=== PATIENT | female | born 1965 | race Caucasian/White ===

== ENCOUNTER → 2021-08-04 | Outpatient (CLI) | payer MEDICAID | LOC: COL.RAD 08:41 | DX: C50.411 Malignant neoplasm of upper-outer quadrant of right female breast (principal); R91.1 Solitary pulmonary nodule; Z90.49 Acquired absence of other specified parts of digestive tract; Z90.710 Acquired absence of both cervix and uterus | CPT/HCPCS: A9503; Q9967 ==

== ENCOUNTER → 2021-10-22 | Outpatient (CLI) | payer MEDICAID | LOC: COL.RAD 09:29 | DX: C50.411 Malignant neoplasm of upper-outer quadrant of right female breast (principal); C79.51 Secondary malignant neoplasm of bone; J94.8 Other specified pleural conditions; K76.9 Liver disease, unspecified; R91.8 Other nonspecific abnormal finding of lung field | CPT/HCPCS: Q9967 ==

== ENCOUNTER → 2022-08-23 | Outpatient (CLI) | payer MEDICAID | LOC: COL.CARD 11:00 | DX: C50.411 Malignant neoplasm of upper-outer quadrant of right female breast (principal) ==

== ENCOUNTER → 2023-02-01 | Outpatient (CLI) | payer SELFPAY ==
[~2023-02-01] VITALS: Ht 162.6 cm; Wt 53.4 kg
[2023-02-01] VITALS (8 sets, daily range): BP systolic 123–146; BP diastolic 73–83; PULSE 76–93; TEMP 97.9
[~2023-02-01] MED LIST: ELIQUIS 5MG PO; GLUCOPHAGE1000 MG PO; KISQALI400 MG PO; MS CONTIN 115 MG/TAB PO; NORCO 325 MG-101 TAB PO; PROTONIX 40MG T40 MG PO; ZOFRAN8 MG PO
--- NOTE | 2023-02-01 06:55 | NUR ---
pt has not shown up
== END ==
LOC: COL.RAD 06:30
DX: C50.411 Malignant neoplasm of upper-outer quadrant of right female breast (principal)
CPT/HCPCS: 27939; 32106

== ENCOUNTER 2023-11-07 22:08 | Inpatient (IN) | payer MEDICARE, MEDICAID ==
[~2023-11-07] VITALS: Ht 162.6 cm; Wt 48.0 kg
[2023-11-07] MEDS ORDERED: NS 1,000 ML IV ONE (22:45)
[2023-11-07 23:59] LABS: HEMATOCRIT 41.4 % (37.0-47.0); HEMOGLOBIN 13.5 g/dl (12.5-16.0); MEAN CELL VOLUME 85 fl (80.0-100.0); MEAN CORPUSCULAR HEMOGLOBIN 28 pg (27-31); MEAN CORPUSCULAR HGB CONC 33 g/dl (33.0-37.0); MEAN PLATELET VOLUME 11.9 fl (7.4-10.4); PLATELET COUNT 386 K/mm3 (130-400); RED BLOOD COUNT 4.87 M/mm3 (4.10-5.30); REDCELL DISTRIBUTION WIDTH-CV 21.5 % (11.5-14.5)
[2023-11-08] VITALS (10 sets, daily range): BP systolic 91–112; BP diastolic 51–71; PULSE 89–96; TEMP 98–99.2
[2023-11-08 00:12] LABS: ALBUMIN 3.4 g/dL (3.5-5.0); BILIRUBIN,TOTAL 0.7 mg/dL (0.2-1.2); CALCIUM 9.8 mg/dL (8.4-10.2); CREATININE, serum 1.03 mg/dL (0.57-1.11); POTASSIUM 3.5 mEq/L (3.5-4.5); TOTAL PROTEIN 7.5 g/dl (6.2-8.1)
[2023-11-08 00:17] LABS: ANISOCYTOSIS 3+; BAND 24 % (0-10); EOSINOPHIL 3 % (0-4); LYMPHOCYTE 20 % (20.0-51.0); METAMYELOCYTE 3 % (0-0); NEUTROPHILS 42 % (42.0-75.2); PLATELET ESTIMATE NORMAL (NORMAL)
[2023-11-08 00:39] LABS: TROPONIN-I 0.737 ng/mL (0.00-0.033)
[2023-11-08] MEDS ORDERED: NS 500 ML IV ONE (01:45)
[2023-11-08 02:25] LABS: PH 5.5 (5.0-8.5); URINE APPEARANCE CLEAR (CLEAR/HAZY); URINE BLOOD NEGATIVE (NEGATIVE); URINE COLOR YELLOW (YELLOW); URINE GLUCOSE NEGATIVE (NEGATIVE); URINE KETONE 1+ (NEGATIVE); URINE NITRATE NEGATIVE (NEGATIVE); URINE PROTEIN(semi-quant) NEGATIVE (NEGATIVE); URINE UROBILINOGEN 0.2 E.U/dL (0.2-1.0)
[2023-11-08 02:33] LABS: COLLECTION METHOD CLEAN CATCH
[2023-11-08] MEDS ORDERED: Ondansetron 4 MG/2 ML VIAL IV PRN (03:15)
[2023-11-08] MEDS ORDERED: Mag/Al Hydrox/Simeth Susp 30 ML CUP PO PRN (03:15)
[2023-11-08] MEDS ORDERED: NS 1,000 ML IV SCH (03:15)
[2023-11-08] MEDS ORDERED: Acetaminophen 325 MG TAB PO PRN (03:15)
--- NOTE | 2023-11-08 03:45 | NUR ---
arrived on unit per stretcher, she was able to move herself from the stretcher to her bed, gown and shee under her are wet from IV fluids leaking and she has also been incontinent of urine, incontinent care given and dry gown on, IV fluids infusing to right antecubital, physical assessment completed, see intervention for further info,
--- NOTE | 2023-11-08 04:15 | NUR ---
admission assessment completed, she answer questions about medications but seemed unclear at times what her meds were, will pass on to day shift to reverify all meds, is ready to sleep
[2023-11-08] MEDS ORDERED: Glucagon 1 MG VIAL IM PRN (04:30)
[2023-11-08] MEDS ORDERED: Dextrose (Glucose) 15 GM (4 x 3.75 GM) Chewable TABLET PACK PO PRN (04:30)
[2023-11-08] MEDS ORDERED: Dextrose 50% Water 25 GM/50 ML SYRINGE IV PRN (04:30)
--- NOTE | 2023-11-08 05:17 | NUR ---
appears to be sleeping, resp quiet and easy
--- NOTE | 2023-11-08 05:50 | NUR ---
58 yo female with a history of stage IV brest cancer is now admitted for further care and management of sepsis of unclear etiology. ht 162.6 cm wt 48 kg SCr 1.03 with estimated CrCl ~40 ml/min half life 12.6 hours. Plan: Patient received an initial loading dose of vancomycin 1000 mg x1 (20.8 mg/kg); will follow with a maintenance regimen of vancomycin 750 mg iv q12h to target a goal trough of 15-20 mcg/ml. Will follow patient's renal function, micro data, and vancomycin levels as indicated to assess for any necessary changes to the regimen. Thank you for this dosing consult.
--- NOTE | 2023-11-08 06:50 | NUR ---
PT RESTING IN BED. PT IS SLEEPY BUT AROUSES TO VOICE. PT IS ORIENTED TIMES 4. PT IS ON RA. PT IS SR ON TELE. PT HAS IVF RUNNING. PT IS IN FALL PRECAUTIONS AND BED ALARM ACTIVE. PT HAS CALL LIGHT AND INSTRUCTED TO CALL WITH ALL NEEDS.
--- NOTE | 2023-11-08 07:16 | NUR ---
bedside shift report given to KIET Zamorano and GEN Maxwell
[2023-11-08] MEDS ORDERED: Insulin Lispro (HumaLOG) SQ SCH (08:00)
[2023-11-08] MEDS ORDERED: Apixaban 5 MG TABLET PO SCH (09:00)
[2023-11-08] MEDS ORDERED: HYDROcodone/Acetaminophen 10-325 MG TAB PO PRN (09:45)
[2023-11-08] MEDS ORDERED: GLUCOPHAGE500 MG/TAB PO (10:19)
--- NOTE | 2023-11-08 11:00 | NUR ---
NOTIFIED OF PTS TWO EPISODES OF HYPOGLYCEMIA. ORDER RECEIVED TO CHANGE IVF. JUICE AND PUDDING GIVEN. NEW FLUIDS HUNG. WILL RECHECK BG.
[2023-11-08] MEDS ORDERED: D5 1/2 NS 1,000 ML IV SCH (11:15)
[2023-11-08] MEDS ORDERED: TRODELVY180 MG IV (11:37)
[2023-11-08] MEDS ORDERED: [UNRECOGNIZED DRUG - OTHER] SQ (11:38)
--- NOTE | 2023-11-08 13:15 | NUR ---
family preservation worker met with patient to discuss discharge planning. Patient was sleeping but woke when psychiatric social worker entered room. Patient was able to answer a few questions prior to falling asleep again. Patient reports she lives in [place] with her son, Ravi, P# [phone]. PCP is Dr. Singh, Pharmacy is [facility] in [place] and her insurance is Medicare A and B. After these questions, patient fell asleep, psychiatric social worker chose to leave and contact her son to answer additional questions. SW contacted Ravi whom reports patient lives with him. Ravi reports he does not believe she has a DPOA-HC but is uncertain. Ravi reports if she has one it was likely him as he explained is the most responsible of her children. SW explained without a DPOA-HC all children have equal rights to make decision but SW explained if patient is alert and oriented she could discuss completing one in the hospital if she is interested. Ravi reports patient has a wheelchair at home but does not utilize it. Ravi reports normally patient is independent with ADLS at home. Ravi reports patient has family members available to transport her to and from appointments. SW explained she would continue to follow patient's care and would update him. Ravi understood, no questions or concerns at this time. Discharge plan: Home
[2023-11-08] MEDS ORDERED: Cefepime 1 G in Water For Injection,Sterile 10 ML IV SCH (15:00)
--- NOTE | 2023-11-08 22:43 | NUR ---
PATIENT IS RESTING IN BED WATCHING TV. SHE REMAINS STABLE ON ROOM AIR. SHE DID AMBULATE TO THE BATHROOM ON HER OWN WITH STANDBY ASSISTANCE AND NO SUPPORTIVE DEVICES. SHE IS REPORTING SOME THROBBING PAIN IN HER RIGHT LEG. CALL LIGHT IS WITHIN REACH. BED IS LOCKED AND IN LOW POSITION.
[2023-11-09] VITALS (13 sets, daily range): BP systolic 92–118; BP diastolic 48–67; PULSE 85–105; TEMP 97.5–99
[2023-11-09] MEDS ORDERED: CYMBALTA 60MG60 MG PO (05:01)
--- NOTE | 2023-11-09 05:01 | NUR ---
PATIENT ASKED IF SHE HAD BEEN RECEIVING HER CYMBALTA. RN CHECKED MED LIST AND DID NOT FIND CYMBALTA, THEN CHECK MED REC AND NOTED THAT CYMBALTA 60 MG DAILY HAD NOT BEEN ADDED AT TIME OF ADMIT. MED REC UPDATED AT THIS TIME
[2023-11-09 07:23] LABS: MEAN CELL VOLUME 86 fl (80.0-100.0); MEAN CORPUSCULAR HGB CONC 31 g/dl (33.0-37.0); RED BLOOD COUNT 3.47 M/mm3 (4.10-5.30); REDCELL DISTRIBUTION WIDTH-CV 20.5 % (11.5-14.5)
[2023-11-09 07:26] LABS: HEMATOCRIT 29.8 % (37.0-47.0); MEAN CORPUSCULAR HEMOGLOBIN 27 pg (27-31); PLATELET COUNT 285 K/mm3 (130-400)
[2023-11-09 07:31] LABS: HEMOGLOBIN 9.3 g/dl (12.5-16.0)
[2023-11-09 07:37] LABS: ALBUMIN 2.6 g/dL (3.5-5.0); BILIRUBIN,TOTAL 0.3 mg/dL (0.2-1.2); CALCIUM 8.4 mg/dL (8.4-10.2); CREATININE, serum 0.67 mg/dL (0.57-1.11); POTASSIUM 3.4 mEq/L (3.5-4.5); TOTAL PROTEIN 5.8 g/dl (6.2-8.1)
[2023-11-09 08:33] LABS: ANISOCYTOSIS 2+; BAND 23 % (0-10); EOSINOPHIL 9 % (0-4); LYMPHOCYTE 22 % (20.0-51.0); METAMYELOCYTE 1 % (0-0); MYELOCYTE 2 % (0-0); NEUTROPHILS 33 % (42.0-75.2)
[2023-11-09 08:34] LABS: HYPOCHROMIA 1+; PLATELET ESTIMATE NORMAL (NORMAL)
--- NOTE | 2023-11-09 08:52 | NUR ---
PT ALERT AND EATING BREAKFAST IN BED. NORMAL HEART SOUNDS 1&2. LUNG HAMILTON CLEAR. AUDIBLE NOISES IN ALL QUADRANTS OF ABDOMEN. PT STATES SHE HAS SOME NAUSEA AND A HEADACHE. PRN TYLENOL GIVEN PER ORDER. NO REDNESS OR SWELLING IN BLE. PT STATES SHE DOES HAVE SAAB PAIN THAT COMES AND GOES. DESCRIBED BONE PAIN. ALL PULSES READILY PALPABLE. PT VERY CONTENT WITH BEING ABLE TO EAT BREAKFAST THIS MORNING. PT ALSO EXPLAINED THAT SHE WAS HAVING SOME BURNING SENSATIONS IN HER SHOULDER BLADE AREA. UNSURE IF IT IS RELATED TO CANCER. WARM TO TOUCH. D5 GOING AT 100ML/HR. CALL LIGHT WITHIN REACH. NO FURTHER NEEDS.
[2023-11-09] MEDS ORDERED: LR 1,000 ML IV SCH (11:15)
--- NOTE | 2023-11-09 12:42 | NUR ---
field worker received a call from patient's sister, Alexa, asking about the discharge plan and prognosis. SW explained she would be able to call her when the doctor rounds with her today if she would prefer. Alexa stated she would appreciate it. ROSEMARY attended interdisciplinary clinical rounding with Dr. Berrios. SW discussed the need for a pallitative care consult. Dr. Berrios was in agreement with this and reports he spoke with Dr. Bentley, patient's oncologist whom is in agreement it would be beneficial to discuss goals of care. ROSEMARY, Dr. Berrios and Ariella, district loss prevention manager, met with patient and her sister, Alexa, (via telephone) to discuss patient's medical status and goals of care. Dr. Berrios discussed code status with patient. Patient was in agreement she would like to become DNR. Ariella and ROSEMARY discussed hospice care at length with patient. At this time, patient wants to continue her medical care but is interested in speaking with [facility] to plan for when she would be ready for hospice. Patient stated she does not want to in a family home because she does not want them to have that memory of her. RSOEMARY discussed the financial cost of hospice house and nursing homes. ROSEMARY explained patient's Medicare will cover hospice care but would not cover her room and board. ROSEMARY explained if patient has Medicaid that would cover the room and board cost. Patient stated she was informed at the last hospital that her Medicaid still shows as active but she had received a letter stating she was declined due to her annuity left from her late that she does not have access to. SW explained she would request the hospice house contact her to discuss her options when it came to that time. Patient was agreeable to this. Patient stated she was not wanting a longterm either. At time of discharge, patient would like to return home with some home health services. ROSEMARY presented the Medicare.gov list of options for home health and will follow up. Patient is also interested in completing a DPOA-HC. ROSEMARY presented the form to review and she will return tomorrow to assist patient if she would like to complete this in the hospital. ROSEMARY contacted [facility] and explained patient would be planning to return home with home health but may need hospice in the future and she would like information about their services and what it would look like if she went there. [facility] requested patient's information and they would contact her. ROSEMARY secure emailed the requested information. Discharge plan: Home with Home Health
--- NOTE | 2023-11-09 13:28 | NUR ---
During rounding with Dr. Berrios, myself, ROSEMARY Pearson case was reviewed with pt. Currently pt is a Full Code. Dx: Breast CA Stage IV with Mets Bone, Liver and Lungs. Payor: MCR A/B. Pt taking Palliative Chemo. Recent admit with Colitis with 10 day stay. Pt is improving from Dehydration. Dr. Berrios reviewed Code Status- pt voiced "I don't want to be in pain to live." Pt made DNR per her request. Encouraged pt to assign a DPOA for possible needs in the future. Tamika will give paperwork for pt to review. Pt's sister, Alexa, was on speaker phone as well during discussion. Discussed future ideas of Hospice Care and options. Investigating if pt has current JEREMI- waiting on response from [facility]. Pt stated, "I want to give the Chemo a couple of months to work before I make any changes." Pt tearful at times of thoughts of family being sad at her . "I don't want my kids to have regrets when I ." It was discussed about being intentional with future plans, discussions with family etc. Pt stated she had had many conversations with her family over the last month.
--- NOTE | 2023-11-09 20:58 | NUR ---
PATIENT C/O 11/01 SAAB AND SCAPULAR PAIN. PRN NORCO ADMINISTERED.
[2023-11-09] MEDS ORDERED: DULoxetine 60 MG CAP PO SCH (21:00)
[2023-11-10] VITALS (10 sets, daily range): BP systolic 93–110; BP diastolic 55–69; PULSE 77–94; TEMP 97.6–98.3
[2023-11-10] MEDS ORDERED: Lidocaine 4% Topical Patch TP SCH (00:15)
--- NOTE | 2023-11-10 01:15 | NUR ---
UPON SHIFT ASSESSMENT, PATIENT WAS AXO X4 AND AWAKE IN BED. SKIN EXHIBITS SLIGHT JAUNDICE. PATIENT REMAINS TACHYCARDIC AT 104 BPM. PATIENT C/O OF 8/10 SAAB AND SCAPULAR PAIN. OTHER VS ARE WNL. MED PASS COMPLETE. THERAPEUTIC COMMUNICATIION USED AND PATIENT DISCLOSED HER FAMILIES INABILITY TO COPE WITH HER IMPENDING PASSING. PATIENT EDUCATION PROVIDED. CALL LIGHT WITHIN REACH. WILL ADMINISTERE PRN PAIN MEDS.
[2023-11-10 06:23] LABS: MEAN CELL VOLUME 86 fl (80.0-100.0); MEAN CORPUSCULAR HGB CONC 31 g/dl (33.0-37.0); PLATELET COUNT 295 K/mm3 (130-400); REDCELL DISTRIBUTION WIDTH-CV 20.2 % (11.5-14.5)
[2023-11-10 06:34] LABS: ANION GAP 6 mmol/L (7-16); BLOOD UREA NITROGEN < 5 mg/dL (10-20); CALCIUM 8.6 mg/dL (8.4-10.2); CHLORIDE 105 mEq/L (98-107); GLUCOSE 167 mg/dL (70-99); MAGNESIUM 1.6 mg/dL (1.6-2.6); POTASSIUM 4.4 mEq/L (3.5-4.5); SODIUM 138 mEq/L (136-145)
[2023-11-10 06:45] LABS: HEMATOCRIT 27.4 % (37.0-47.0); HEMOGLOBIN 8.6 g/dl (12.5-16.0); MEAN CORPUSCULAR HEMOGLOBIN 27 pg (27-31)
[2023-11-10 07:40] LABS: BAND 8 % (0-10); EOSINOPHIL 3 % (0-4); LYMPHOCYTE 9 % (20.0-51.0); NEUTROPHILS 76 % (42.0-75.2)
[2023-11-10 07:41] LABS: ANISOCYTOSIS 2+; HYPOCHROMIA 2+; OVALOCYTES 1+; PLATELET ESTIMATE NORMAL (NORMAL)
--- NOTE | 2023-11-10 09:00 | NUR ---
PATIENT ALERT AND ORIENTED X4. ON ROOM AIR. REPORTS PAIN/ HEADACHE RATING IT 4/10.PATIENT REPORTS FEELING WEAK AND MILD NAUSEA. PATIENT ALSO HAS SOME DISCOMFORT TO EPIGASTRIC AREA. PATIENT RESTING IN BED.SHIFT ASSESSMENT COMPLETED.CALL LIGHT WITHIN REACH. BED AT LOWEST POSITION. BED ALARM ON.
[2023-11-10] MEDS ORDERED: LEVAQUIN 750MG750 M1 PO (09:53)
[2023-11-10] MEDS ORDERED: Iohexol 300 - 100 ML VIAL IV ONE (11:13)
[2023-11-10] MEDS ORDERED: NS 100 ML IV SCH (11:14)
--- NOTE | 2023-11-10 15:39 | NUR ---
addiction social worker was notified patient has Medicaid. SW provided patient with her Medicaid ID number and explained that would be the payer source if she needed to go to a assisted or hospice house. ROSEMARY discussed home health and DPOA-HC again, patient expressed she was not feeling well and wanted to wait to discuss this until tomorrow. Discharge plan: Home with Home health
--- NOTE | 2023-11-10 23:56 | NUR ---
PT ALERT AND ORIENTED X4, VERY PLEASANT WOMAN WHO IS IN A LOT OF PAIN, C/O FEELING TIRED AND FATIGUED. EDUCATED THAT WE WOULD DO OUR BEST TO KEEP HER PAIN AT BAY AND KEEP HER COMFORTABLE, PT EXPRESSES UNDERSTANDING. PT APPEARS VERY THIN AND UNDERNOURISHED, DOESNT HAVE MUCH OF AN APPETITE. SHIFT ASSESSMENT COMPLETE, ALL HS MEDS ADMINISTERED. DENIES FURTHER NEED, CALL LIGHT WITHIN REACH.
[2023-11-11 00:06] VITALS: BP 105/62; PULSE 94; TEMP 97.9
[2023-11-11 01:37] VITALS: BP_SYST 105
[2023-11-11 04:17] VITALS: BP 99/59; PULSE 98; TEMP 97.8
[2023-11-11 06:08] LABS: MEAN CELL VOLUME 86 fl (80.0-100.0); MEAN CORPUSCULAR HGB CONC 32 g/dl (33.0-37.0); MEAN PLATELET VOLUME 12.2 fl (7.4-10.4); PLATELET COUNT 346 K/mm3 (130-400); RED BLOOD COUNT 3.52 M/mm3 (4.10-5.30); REDCELL DISTRIBUTION WIDTH-CV 20.5 % (11.5-14.5)
[2023-11-11 06:09] LABS: HEMATOCRIT 30.1 % (37.0-47.0); HEMOGLOBIN 9.6 g/dl (12.5-16.0); MEAN CORPUSCULAR HEMOGLOBIN 27 pg (27-31)
[2023-11-11 07:12] LABS: BASOPHIL 0 % (0-2); EOSINOPHIL 4 % (0-4); LYMPHOCYTE 12 % (20.0-51.0); METAMYELOCYTE 1 % (0-0)
[2023-11-11 07:13] LABS: ANISOCYTOSIS 2+; BAND 20 % (0-10); PLATELET ESTIMATE NORMAL (NORMAL)
[2023-11-11 07:14] LABS: HYPOCHROMIA 2+
[2023-11-11 07:15] LABS: NEUTROPHILS 60 % (42.0-75.2)
[2023-11-11 07:20] VITALS: BP 108/68; PULSE 96; TEMP 98.4
--- NOTE | 2023-11-11 08:33 | NUR ---
Patient is resting in bed, alert and oriented x 4, awaiting for her breakfast. States she still feels dehydrated and has nausea when she turns on her left side on bed. States headache. Assessment completed, meds given. Call light within reach.
[2023-11-11 09:34] VITALS: BP_SYST 108
[2023-11-11] MEDS ORDERED: ATIVAN 1MG T1 MG/TAB PO (10:55)
[2023-11-11] MEDS ORDERED: SYSTANE 0.4%-0.1 SOL OU (10:55)
[2023-11-11] MEDS ORDERED: TRANSDERM-0.5 MG/21 TD (10:55)
[2023-11-11] MEDS ORDERED: DULCOLAX S10 MG/SUPP RC (10:55)
[2023-11-11] MEDS ORDERED: ROXANOL 20MG20 MG/ML SL (10:55)
--- NOTE | 2023-11-11 11:52 | NUR ---
Report given to KIET Moore, at [facility]. IV access and telemetry were discontinued.
[2023-11-11 13:00] VITALS: BP_SYST 108
--- NOTE | 2023-11-11 13:27 | NUR ---
D: Document Scanner stopped by room on rounds. A: Pt was resting and content eating some fruit. Pt has no needs right now. Pt appreciated the visit. P: Document Scanner informed pt that if she needed anything from the refrigeration houseman area to let her nurse know. Document Scanner will follow up as needed.
--- NOTE | 2023-11-11 13:33 | NUR ---
Patient was picked up by EMS.
--- NOTE | 2023-11-11 13:36 | NUR ---
cable worker helper attended interdiscplinary clinical rounding with Dr. Berrios. The team discussed discharge plan. Patient reported she feels weaker today and does not have the strength to return to her son's home. Patient stated she wanted to go to the [facility] rather than pursue any physical rehab. SW asked patient if she wanted to notify her family or if she would like the social problems specialist to assist with this. Patient stated she would. ROSEMARY contacted [facility] and explained the patient decided to move forward with hospice at their agency. Eliecer from [facility] expressed they could accept today. Eliecer expressed 1 pm arrival time would work for them. ROSEMARY contacted [facility] and scheduled transport for 1245 pm. SW provided EMS forms to patient's nurse to finalize. SW notified patient's nurse and patrol community service officer of transportation time. SW met with patient and explained she scheduled EMS to transport her at 1245 pm. Patient stated that was okay with her. Patient signed the EMS forms for transportation, SW witnessed signature. SW asked patient if she had contacted family yet. Patient stated no, she had been resting. SW asked if she would be okay with the social problems specialist contacting them so they are not surprised when she calls about discharge. Patient stated her family is at work. SW expressed understanding but wanted to ensure her family is aware of her wishes. Patient understood and expressed it was okay for her to contact the family members. ROSEMARY secure emailed discharge orders to [facility] and provided the sister and son's contact information. ROSEMARY contacted patient's sister, Alexa, and explained the patient chose to go to [facility] today. ROSEMARY provided the transport time and that she provided her cell phone number to the [facility] so they can stay in touch. Alexa asked if they had a timeline of how long patient had left. ROSEMARY explained she was not given a timeline but coming to visit would be beneficial. ROSEMARY contacted patient's son, Ravi, and notified him of the patient's wishes to go to [facility] today. SW provided the address to [facility]. Ravi stated he would come visit patient today. No further needs at this time. Discharge plan: [facility]
== END 2023-11-11 13:15 | disposition hospice, inpatient (51) | DRG 951 ==
LOC: COL.ER 22:08 → MEDICAL 11-08 03:01
PROVIDERS: Emergency Medicine; Physician Assistant; ADMIT Internal Medicine
DX: Z51.5 Encounter for palliative care (principal); E11.649 Type 2 diabetes mellitus with hypoglycemia without coma
CPT/HCPCS: J0692; J1447; J1650; J1815; J2405; J2543; J3370; J7030; J7040; J7050; J7120; Q9967